=== PATIENT | female | born 1970 | race Caucasian/White ===

== ENCOUNTER → 2018-03-27 | Outpatient (CLI) | payer MEDICAID ==
[2018-03-27 12:02] LABS: Basophils % (A) 1 %; Eosinophils # (A) 0.1 k/uL (0-0.7); Eosinophils % (A) 2 %; HCT 46.6 % (34.0-46.0); HGB 14.7 gm/dL (11.4-16.0); Lymphocytes # (A) 1.7 k/uL (1.0-4.8); Lymphocytes % (A) 34 %; MCHC 31.6 g/dL (31.0-37.0); MCV 88.7 fL (80.0-100.0); Mean Platelet Volume 7.3; Monocytes # (A) 0.3 k/uL (0-1.0); Monocytes % (A) 7 %; Neutrophils # (A) 2.7 k/uL (1.3-7.7); Neutrophils % (A) 55 %; Platelet Count 225 k/uL (150-450); RBC 5.25 m/uL (3.80-5.40); RDW 12.3 % (11.5-15.5); WBC 4.9 k/uL (3.8-10.6)
[2018-03-27 22:49] LABS: Albumin 4.8 g/dL (3.80-4.90); Anion Gap 6.2 mmol/L (4.00-12.00); Calcium 9.7 mg/dL (8.7-10.3); Carbon Dioxide 31.8 mmol/L (21.6-31.8); Globulin 2.4 g/dL (2.1-3.7); LDL Cholesterol,Calculated 96.8 mg/dL (0.0-131.0); Potassium 4.5 mmol/L (3.5-5.5); Total Bilirubin 0.7 mg/dL (0.2-1.2); Total Protein 7.2 g/dL (6.2-8.2); VLDL Calculation 17.2 mg/dL (5.00-40.00)
[2018-03-27 22:57] LABS: T4, Free (Free Thyroxine) 1.1 ng/dL (0.80-1.80)
== END | disposition home or self-care (01) ==
LOC: LABWHC1 09:58
PROVIDERS: ATTEND Family Medicine
DX: Z00.00 Encounter for general adult medical examination without abnormal findings (principal); Z79.899 Other long term (current) drug therapy
CPT/HCPCS: 36415; 80053; 80061; 84439; 84443; 85025

== ENCOUNTER → 2018-04-20 | Outpatient (CLI) | payer MEDICAID ==
[2018-04-20 16:08] VITALS: BP 121/76; PULSE 76; TEMP 98; BMI 27.4
--- NOTE | 2018-04-20 17:00 | P.HPOB ---
History of Present Illness H&P Date: 04/20/18 Chief Complaint: The patient is here for her routine gynecologic exam and mammogram. This is a 48-year-old with an LMP of 03/27/2018. The patient's partner is status post vasectomy. Her menses were regular every month until December. She had a menstrual period that started on 01/16/2018 and her next one was on . She did experience hot flashes during the month of January, but these did resolve. She is otherwise without complaints. Review of Systems She is getting about 20 pounds over the last 3 years. She she recently developed a sore throat. She denies any other respiratory, cardiac, or G.I. problems. 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 She has very infrequent outbreaks. History of Any Multi-Drug Resistant Organisms: None Reported Past Surgical History: Hernia Repair (Umbilical hernia) Additional Past Surgical History / Comment(s): Colonoscopy 2009. 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 She has been . She is engaged to be in 10/10. - Past Family History Father Family Medical History: No Reported History Medications and Allergies Home Medications Medication Instructions Recorded Confirmed Type Atenolol [Tenormin] 25 mg PO DAILY 04/20/18 04/20/18 History Zolpidem [Ambien] 10 mg PO HS PRN 04/20/18 04/20/18 History Allergies Allergy/AdvReac Type Severity Reaction Status Date / Time azithromycin [From Zithromax] AdvReac Severe diziness Unverified 04/20/18 16:02 Sulfa (Sulfonamide AdvReac Severe Rash/Hives Unverified 04/20/18 16:02 Antibiotics) Exam Vital Signs Temp Pulse BP 04/20/18 16:03 98.0 F 76 121/76 Intake and Output 04/20/18 04/20/18 04/20/18 06:59 14:59 22:59 Other: Weight 74.843 kg Height 5'5", weight 165 pounds, BMI 27.5. This is a well-developed well-nourished white female who is alert and oriented times 3 in no acute distress. HEENT: Within normal limits. NECK: Supple without mass or thyromegaly. CHEST AND LUNGS: Clear to auscultation. HEART: Regular rate and rhythm. BREASTS: Are without mass or discharge. AXILLARY EXAM: Negative for adenopathy. BACK: Negative for CVA tenderness. ABDOMEN: Soft, nontender, without palpable masses. PELVIC EXAM: Normal external genitalia. Cervix and vagina appear normal. The cervix is somewhat anterior consistent with a retroverted uterus.. There is no unusual discharge. There is no evidence of prolapse. The uterus is midposition , retroverted, nongravid size and nontender. There are no palpable adnexal masses or tenderness. RECTAL EXAM: negative for mass or tenderness and is negative for occult blood. EXTREMITIES: Nontender. IMPRESSION: 1. 48-year-old perimenopausal female with intermittent vasomotor symptoms and recent oligomenorrhea. 2. Patients fianc is status post vasectomy. 3. History of genital HSV with infrequent outbreaks. The patient is no longer taking suppressive Valtrex therapy. PLAN: 1. Pap smear was performed. 2. Self breast awareness was discussed with the patient. 3. Screening mammogram will be done today. 4. Osteoporosis prevention was discussed. I have stressed the importance of adequate calcium, vitamin D and regular exercise. Recommended amounts of calcium and vitamin D were also discussed. 5. The patient is requesting a paper prescription for Valtrex if she has an outbreak. At the 1st sign of an outbreak, she will use Valtrex 500 mg BID times 3 days. 6 refills. 6. She will return in one year.
--- NOTE | 2018-04-22 08:36 | MM ---
Reason for exam: screening (asymptomatic). Last mammogram was performed 2 years and 11 months ago. Physical Findings: A clinical breast exam by your physician is recommended on an annual basis and results should be correlated with mammographic findings. MG Screening Mammo w CAD Bilateral CC and MLO view(s) were taken. Prior study comparison: May 28, 2015, bilateral MG screening mammo w CAD. September 26, 2013, bilateral MG screening mammo w CAD. The breast tissue is heterogeneously dense. This may lower the sensitivity of mammography. Right 12 o'clock posterior calcifications stable to 2015. ASSESSMENT: Negative, BI-RAD 1 RECOMMENDATION: Routine screening mammogram of both breasts in 1 year.
== END | disposition home or self-care (01) ==
LOC: WWCWWP 15:51
PROVIDERS: ATTEND Obstetrics & Gynecology
DX: Z12.31 Encounter for screening mammogram for malignant neoplasm of breast (principal)
CPT/HCPCS: 77067

== ENCOUNTER → 2020-05-08 | Outpatient (CLI) | payer BC ==
[2020-05-08 11:47] VITALS: BP 153/111; PULSE 66; RESP 18; TEMP 97.9
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
--- NOTE | 2020-05-09 11:51 | MM ---
Reason for exam: screening (asymptomatic). Last mammogram was performed 2 years and 1 month ago. Physical Findings: A clinical breast exam by your physician is recommended on an annual basis and results should be correlated with mammographic findings. MG Screening Mammo w CAD Bilateral CC and MLO view(s) were taken. Prior study comparison: April 20, 2018, bilateral MG screening mammo w CAD. May 28, 2015, bilateral MG screening mammo w CAD. The breast tissue is heterogeneously dense. This may lower the sensitivity of mammography. There is no discrete abnormality. No significant changes when compared with prior studies. ASSESSMENT: Negative, BI-RAD 1 RECOMMENDATION: Routine screening mammogram of both breasts in 1 year.
== END | disposition home or self-care (01) ==
LOC: WWCWWP 11:20
PROVIDERS: ATTEND Obstetrics & Gynecology
DX: Z12.31 Encounter for screening mammogram for malignant neoplasm of breast (principal)
CPT/HCPCS: 77067

== ENCOUNTER → 2021-04-10 | Outpatient (CLI) | payer BC ==
[2021-04-10 08:58] VITALS: BP 122/72; PULSE 67; RESP 16; TEMP 98.2
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
== END ==
LOC: WWCWWP 08:42
PROVIDERS: ATTEND Obstetrics & Gynecology
DX: Z01.419 Encounter for gynecological examination (general) (routine) without abnormal findings (principal); I10 Essential (primary) hypertension; Z88.1 Allergy status to other antibiotic agents; Z88.2 Allergy status to sulfonamides

== ENCOUNTER → 2021-05-13 | Outpatient (CLI) | payer BC ==
--- NOTE | 2021-05-13 12:04 | MM ---
Reason for exam: screening (asymptomatic). Last mammogram was performed 1 year ago. History: Patient is postmenopausal. Physical Findings: A clinical breast exam by your physician is recommended on an annual basis and results should be correlated with mammographic findings. MG Screening Mammo w CAD Bilateral CC and MLO view(s) were taken. Prior study comparison: May 08, 2020, bilateral MG screening mammo w CAD. April 20, 2018, bilateral MG screening mammo w CAD. The breast tissue is heterogeneously dense. This may lower the sensitivity of mammography. There is no discrete abnormality. ASSESSMENT: Negative, BI-RAD 1 RECOMMENDATION: Routine screening mammogram of both breasts in 1 year.
== END | disposition home or self-care (01) ==
LOC: RADMAMWWP 10:11
PROVIDERS: ATTEND Obstetrics & Gynecology
DX: Z12.31 Encounter for screening mammogram for malignant neoplasm of breast (principal); Z78.0 Asymptomatic menopausal state
CPT/HCPCS: 77067

== ENCOUNTER → 2021-05-13 | Outpatient (CLI) | payer BC ==
[2021-05-13 14:58] LABS: Basophils # (A) 0.03 X 10*3/uL (0.00-0.10); Basophils % (A) 0.4 %; Eosinophils # (A) 0.15 X 10*3/uL (0.04-0.35); Eosinophils % (A) 2.2 %; HCT 46.7 % (37.2-46.3); HGB 14.3 g/dL (12.0-15.0); Lymphocytes % (A) 30.3 %; MCH 26.9 pg (27.0-32.0); MCHC 30.6 g/dL (32.0-37.0); MCV 87.8 fL (80.0-97.0); Mean Platelet Volume 10.3 fL (9.5-12.2); Monocytes # (A) 0.66 X 10*3/uL (0.20-1.00); Monocytes % (A) 9.5 %; Neutrophils # (A) 3.97 X 10*3/uL (1.80-7.70); Neutrophils % (A) 57.5 %; Platelet Count 264 X 10*3/uL (140-440); RBC 5.32 X 10*6/uL (4.10-5.20); RDW 12.5 % (11.5-14.5); WBC 6.92 X 10*3/uL (4.50-10.00)
[2021-05-13 16:18] LABS: ALT 13 U/L (8-44); AST 19 U/L (13-35); African American GFR (CKD) 104.1 (60.0-200.0); Albumin 4.7 g/dL (3.8-4.9); Albumin/Globulin Ratio 1.81 (1.60-3.17); Alkaline Phosphatase 92 U/L (41-126); BUN/Creat Ratio 14.86 Ratio (12.00-20.00); Blood Urea Nitrogen 11.4 mg/dL (9.0-27.0); Calcium 9.7 mg/dL (8.7-10.3); Carbon Dioxide 27.3 mmol/L (20.0-27.5); Chloride 103 mmol/L (96-109); Globulin 2.6 g/dL (1.6-3.3); Glucose 95 mg/dL (70-110); LDL Cholesterol,Calculated 127.4 mg/dL (0.0-131.0); Non-African American GFR(CKD) 89.8 (60.0-200.0); Potassium 4.2 mmol/L (3.5-5.5); Sodium 143 mmol/L (135-145); Total Protein 7.3 g/dL (6.2-8.2); VLDL Calculation 13.52 mg/dL (5.00-40.00)
== END | disposition home or self-care (01) ==
LOC: LABWHC1 10:14
PROVIDERS: ATTEND Family Medicine
DX: Z00.00 Encounter for general adult medical examination without abnormal findings (principal)
CPT/HCPCS: 36415; 80053; 80061; 85025